=== PATIENT | female | born 1930 | race Caucasian/White ===

== ENCOUNTER 2016-09-30 08:14 | Inpatient (IN) | payer MEDICARE ==
[~2016-09-30] VITALS: Ht 167.6 cm; Wt 106.6 kg
--- NOTE | ~2016-09-30 | CST ---
Cardiac Perfusion Imaging Demographics Patient Name JOSE Fisher Gender Female Patient Number [id number] Race Visit Number [id number] Ethnicity Corporate ID Room Number 406 Accession Number [id number] Height 66 inches Date of 1930 Weight 229 pounds Age 86 year(s) BSA 2.12 m Referring Physician Prince Brown MD BMI 36.96 kg/m Interpreting Physician [facility] [place] Date of study 10/02/2016 Bubba Alvarado MD Supervising MD/MLP Bubba Alvarado MD NM Technologist [place] Ordering Physician Bubba Alvarado MD Stress pharmacy technician instructor Stress ECG Reading [facility] Nurse Chet Patel Physician Bubba Spencer The procedure was explained in detail to the patient. Risks, complications and alternative treatments were reviewed. Written consent was obtained. Medications Reviewed with Patient prior to Procedure. Procedure Procedure Type: Nuclear Stress Test:Pharmacological, Lexiscan Procedure Start time: 10/02/2016 07:30 Indications: Chest discomfort and Hypertension. Risk Factors The patient risk factors include:hypertension, renal failure and prior heart failure . Conclusions Summary Perfusion Images: The overall quality of the study is good. Left ventricular cavity is noted to be normal on the stress and rest studies. There is no evidence of abnormal lung activity. The right ventricle is not visualized and cannot be assessed. Stress SPECT images demonstrate homogenous tracer distribution throughout the myocardium. Rest SPECT images demonstrate homogenous tracer distribution throughout the myocardium. Gated SPECT imaging reveals normal myocardial thickening and wall motion. The left ventricular ejection fraction was calculated to be 77%. Impression ECG portion of stress test is clinically negative for ischemia by diagnostic criteria. Myocardial perfusion imaging is normal. Overall left ventricular systolic function was normal without regional wall motion abnormalities. Compared to the prior study from 2009, the current study reveals no change. Stress Protocols Resting ECG Normal sinus rhythm. Ventricular paced rhythm. Resting HR:71 bpm Resting BP:100/60 mmHg Stress Protocol:Pharmacologic Predicted HR: 134 bpm Test duration: 06:00 min Reason for termination:Infusion complete ECG Findings No ECG changes suggestive of ischemia. Arrhythmias No rhythm abnormality. Stress Interpretation Appropriate hemodynamic response to Lexiscan. No significant ST-T wave changes with Lexiscan. ECG portion is negative for ischemia by diagnostic criteria. Imaging Results Summed scores - Summed stress score: 5 - Summed rest score: 7 - Summed difference score: -2 Stress ejection Ejection fraction:77 % EDV :69 ml ESV :16 ml Stroke volume :53 ml LV mass :112 gr Imaging Protocols Rest Stress Isotope:Tc99m Myoview IV Isotope: Tc99m Myoview IV Isotope dose:10.9 mCi Isotope dose:31 mCi Date:10/02/2016 06:15 Date:10/02/2016 07:30 Technique: SPECT Technique: Gated Supine SPECT Supine IV remains in place after procedure. Scan Time:45-60 minutes post Scan Time:45-60 minutes post injection injection Procedure Medications - Regadenoson (Lexiscan) 0.4 mg IV over 10-15 sec. I.V. 0.4 mg. Medications administered per verbal order and read back to physician prior to administration. Medical History Admission Data Admission date: 09/30/2016 Admission Time: 10:00 Hospital Status: Inpatient. Signatures
--- NOTE | 2016-10-02 07:56 | HP ---
ADMIT: 09/30/2016 RM/LOC: 406 [facility] MR#: [id number] 2620 [facility] [address] [place], [place] [address] TRINA GARCIA [address] [address] History and Physical SEX: F AGE: 86 : 1930 DATE OF SERVICE: CHIEF COMPLAINT: Chest pressure, tightness, and shortness of breath. HISTORY OF PRESENT ILLNESS: An 86-year-old female with past medical history of chronic diastolic heart failure; atrial fibrillation/sick sinus syndrome, status post pacemaker; and chronic kidney disease, presents to [facility] Emergency Room today with complaints of chest pressure. Notes it started last night, was sitting watching TV and along with this, she felt kind of shortness of breath and felt like a pressure type of band around her chest almost like her brassiere was too tight. The patient denies any fevers. Does maybe notes no purulent sputum. Has really not had any sick contacts. No new edema has been noted. In the emergency room given her symptoms and her history, she was admitted for further evaluation. Right now, the patient still notes just a little bit of chest pressure. They did note it mostly went away in the emergency room with nitroglycerin, but still noting a little bit. She rates it about 4/10. Once again, just kind of this substernal chest type of pressured. Denies any nausea, vomiting, or abdominal pain. Denies any bowel or bladder complaints. Taking all medications as directed. PAST MEDICAL HISTORY: 1. Chronic atrial fibrillation/sick sinus syndrome, status post pacemaker. 2. Chronic diastolic heart failure. 3. Hypertension. 4. GERD. 5. History of peptic ulcer disease. 6. Sjogren's. 7. Osteoporosis. 8. Chronic depression. 9. Status post tonsillectomy. 10.Status post hernia repair. 11.Status post eye surgery. 12.Status post open reduction and internal fixation of her surgery. 13.Status post left total knee arthroplasty. ALLERGIES: INCLUDE CODEINE, DIPHENHYDRAMINE, AND SULFA. CURRENT HOME MEDICATIONS: Include: 1. PreserVision. 2. Aspirin. 3. Calcium. 4. Prolia. 5. Lasix. 6. Magnesium. 7. Zaroxolyn. 8. Metoprolol. 9. Multivitamin. 10.Omeprazole. 11.Pilocarpine. ADMIT: 09/30/2016 RM/LOC: 406 [facility] MR#: [id number] [address] [address] TRINA GARCIA [address] [place] [address] History and Physical SEX: F AGE: 86 : 1930 12.Potassium. FAMILY HISTORY: Father with heart disease. Mother had problem with intestinal obstruction. SOCIAL HISTORY: She is . Lives currently at [facility]. She is an occasional drinker. Nonsmoker. REVIEW OF SYSTEMS: Remaining review of systems reviewed and are negative. PHYSICAL EXAMINATION: VITAL SIGNS: 98.8, 71, 18, 105/61, and 100% on couple liters by nasal cannula. GENERAL: This is an obese, elderly female. She is in no apparent distress. She is awake. She is alert and oriented x3. Cooperative with the examiner. HEENT: Normocephalic and atraumatic. Mucous membranes are moist. NECK: Supple. LUNGS: She is diminished at the bases. I do not hear any obvious rales. HEART: Regular. I do not notice any murmurs. I do not notice her neck veins look okay to me. ABDOMEN: Soft, nontender, and nondistended. Positive bowel sounds. EXTREMITIES: She have 1 to 2+ foot, ankle, calf edema bilaterally. SKIN: Shows no obvious rashes. NEUROLOGIC: Cranial nerves are intact. No focal deficits are noted. LABORATORY AND DIAGNOSTIC STUDIES: D-dimer was elevated at 0.93. Her troponin has been less than 0.015 on two occasions. Her BNP was 2198. Her hemoglobin was 12.5, white count 10.9, and 184,000 platelets. Sodium 140, potassium 4.2, BUN is 39 with creatinine of 1.4. Chest x-ray shows some mild interstitial prominence. She has a pacemaker in place. Question small left pleural effusion, noted cardiomegaly. Her EKG really looks like fib, but then at other times, is V paced. No acute changes are noted. She did have V/Q scan done earlier today that was low probability for any PE. ASSESSMENT AND PLAN: 1. Chest pressure, dyspnea. 2. Atrial fibrillation, status post pacer. 3. Chronic diastolic heart failure. 4. Chronic kidney disease. 5. Obesity. 6. Sjogren's. ADMIT: 09/30/2016 RM/LOC: 406 [facility] MR#: [id number] [address] [address] TRINA GARCIA [address] [place] [address] History and Physical SEX: F AGE: 86 : 1930 At this time, the patient still having a little bit of pressure. Certainly, does not sound like reflux to me at this time. Certainly with her risk factors, we are going to continue rule out with serial cardiac enzymes. EKGs and V/Q scan was negative and of course, that was done secondary to elevated D- dimer and her overall sedentary lifestyle. Certainly has not had cardiac functional study done we will discuss some cardiac stress testing. We will follow up her with chest x-ray in the morning and lab work. Plan on incentive spirometry. Continue stressor of her home medications. Her volume status overall looks okay. Her kidney function is overall stable. Certainly, if this does not seem infectious to me with no significant cough, fevers, chills, or sputum production, but we will follow up her chest x-ray and follow her symptoms. Mychal Morrison MD/ aundrea JOB #: [id number] CC: Mychal Morrison, Attending Physician Mychal Morrison, Family Physician
--- NOTE | 2016-10-02 16:27 | ER ---
ADMIT: 09/30/2016 RM/LOC: 406 [facility] MR#: [id number] 2620 [facility] [address] [place], [place] [address] JOSE TRINA D [address] [address] Emergency Room Report SEX: F AGE: 86 : 1930 DATE: 09/30/2016 CHIEF COMPLAINT: Chest pain. HISTORY OF PRESENT ILLNESS: The patient is an 86-year-old female who presents to the ER complaining of chest pain that began last night around 7 p.m. It has been constant onset but is wax and wane in severity. She does not associate with any activity. She states it feels like pressure heaviness on her chest. She does have some associated shortness of breath with this, but no nausea, no vomiting, no diaphoresis. REVIEW OF SYSTEMS: Ten-point review of systems done otherwise negative except as in HPI. PAST MEDICAL HISTORY: Significant for coronary artery disease, diastolic failure, atrial fibrillation, and Sjogren's. PREVIOUS SURGERIES: Pacemaker, hernia repair, and D and C. MEDICATIONS: See nurse's note. She is not currently anticoagulated for atrial fibrillation, but does take a baby aspirin. ALLERGIES: CODEINE, SULFA, AND BENADRYL. SOCIAL HISTORY: Denies smoking or drug use. Does occasionally use alcohol. PHYSICAL EXAMINATION: See T-sheet. LABORATORY AND DIAGNOSTIC DATA: Chest x-ray shows what could be very small pleural effusion versus atelectasis at the left base. Otherwise, no acute findings. CBC is normal. Chemistries show CO2 of 34, BUN of 39, glucose 136, creatinine 1.4 and 1st set of cardiac enzymes were normal. Her BNP was 2198 and her D-dimer is slightly elevated at 0.9. EKG showed a paced rhythm with ADMIT: 09/30/2016 RM/LOC: 406 [facility] MR#: [id number] 2620 [facility] [address] [place], [place] [address] TRINA GARCIA [address] [address] Emergency Room Report SEX: F AGE: 86 : 1930 rate of 70. EMERGENCY DEPARTMENT COURSE: The patient had our cardiac routine performed, and she did get significant improvement in her chest pain. After that she was given nitroglycerin and had an inch of nitroglycerin paste placed. I discussed the case with Dr. Morrison, her primary care physician who will bring the patient in for further cardiac rule out. At this point, we will not be performing a CT angio of the chest and the patient for slightly elevated D- dimer as her oxygen saturations have been fine here, and I am concerned of worsening kidney insult if we were to do a CT contrast study at this time. I think it is low probability she has a PE. The patient is admitted in stable and improved condition with a diagnosis of chest pain. Darrick Tobar MD/ aundrea JOB #: [id number] CC: Mychal Morrison MD, Attending Physician Mychal Morrison MD, Family Physician
[2016-10-03] MEDS ORDERED: SALAGEN5 MG PO (11:24)
[2016-10-03] MEDS ORDERED: PRILOSEC DPS20 MG PO (11:24)
[2016-10-03] MEDS ORDERED: METOPROLOL TART25 MG PO (11:24)
[2016-10-03] MEDS ORDERED: LASIX DPS80 MG PO (11:24)
[2016-10-03] MEDS ORDERED: KLOR-CON M2020 ME1 PO (11:24)
[2016-10-03] MEDS ORDERED: TYLENOL EXTRA500 M1 PO (11:25)
[2016-10-03] MEDS ORDERED: ZAROXOLYN5 MG PO (11:25)
[2016-10-03] MEDS ORDERED: ICAPS AREDS SO1 EACH PO (11:26)
[2016-10-03] MEDS ORDERED: THERA1 EACH PO (11:26)
[2016-10-03] MEDS ORDERED: CALTRATE-600 D600 MG PO (11:26)
[2016-10-03] MEDS ORDERED: ASPIRIN EC81 MG PO (11:27)
[2016-10-03] MEDS ORDERED: PROLIA60 MG/ML PO (11:28)
[2016-10-03] MEDS ORDERED: MAGNESIUM250 M1 PO (11:28)
--- NOTE | 2016-10-11 21:18 | DS ---
ADMIT: 09/30/2016 RM/LOC: 406 [facility] MR#: [id number] 2620 [facility] [address] [place], [place] [address] TRINA GARCIA [address] [address] Discharge Summary SEX: F AGE: 86 : 1930 ADMISSION DATE: 09/30/2016 DISCHARGE DATE: 10/02/2016 DISCHARGE DIAGNOSES: 1. Chest pressure, resolved. 2. Chronic diastolic heart failure. 3. Chronic kidney disease. 4. Atrial fibrillation/sick sinus syndrome, status post pacemaker. 5. Obesity. 6. GERD (gastroesophageal reflux disease). 7. Sjogren's. PROCEDURES: Included a V/Q scan and Lexiscan Cardiolite nuclear stress testing. CONSULTATIONS: None. REASON FOR ADMISSION: A very pleasant, 86-year-old female with past medical history of atrial fibrillation, sick sinus syndrome, chronic diastolic heart failure, chronic kidney disease presents to [facility] emergency room on the day of admission with complaints of chest pressure, discomfort. She was admitted for further evaluation and treatment. For complete details, please see H and P dictated on the day of admission. HOSPITAL COURSE: At the time of admission, the patient was placed in a monitored bed. She underwent monitoring with serial cardiac enzymes and EKGs. She was monitored on telemetry as well. Her D-dimer was elevated at the start of her admission. With her chronic kidney disease, she could not undergo a CT angio of the chest, so she underwent a V/Q scan that was low probability for any pulmonary embolus. Her cardiac enzymes all ruled out, and she was set up for a Lexiscan and Cardiolite nuclear stress testing, which was negative for any inducible ischemia. Her chest x-ray showed some mild interstitial prominence, and she was given doses of IV diuretics. Her creatinine was stable, her chest pressure completely resolved. There was question whether this was gastroesophageal reflux, although as things did improve with some Maalox but overall patient stated it was much different than any heartburn symptoms she had ever had. Her pain had resolved. She was seen by PT and OT. ADMIT: 09/30/2016 RM/LOC: 406 [facility] MR#: [id number] 2620 [facility] [address] [place], [place] [address] TRINA GARCIA [address] [place] [address] Discharge Summary SEX: F AGE: 86 : 1930 She ambulated and ate and did very well and was thought to be ready for discharge on 10/02. DISCHARGE DIET: A 2 g sodium cardiac diet with a 2 L fluid restriction. DISCHARGE MEDICATIONS: Are found on her discharge medication list. She will continue with diuretics as current. DISCHARGE ACTIVITY: As tolerated. Will once again plan on daily weights and watch her edema closely. We will try to use her Edema Wear on a regular basis, keep her feet up and watch her sodium. We will have followup with her at [facility] in the next week or so. She will call with other questions. Mychal Morrison MD/ monalisa JOB #: [id number] CC: Mychal Morrison MD, Attending Physician Mychal Morrison MD, Family Physician
== END 2016-10-02 14:50 | disposition home or self-care (01) | DRG 313 ==
LOC: ER 08:14 → 4PCU 10:00
PROVIDERS: ADMIT Internal Medicine
DX: R07.9 Chest pain, unspecified (principal); I25.10 Atherosclerotic heart disease of native coronary artery without angina pectoris; R06.00 Dyspnea, unspecified; I48.91 Unspecified atrial fibrillation; I50.32 Chronic diastolic (congestive) heart failure; I13.0 Hypertensive heart and chronic kidney disease with heart failure and stage 1 through stage 4 chronic kidney disease, or unspecified chronic kidney disease; N18.3 Chronic kidney disease, stage 3 (moderate); M35.00 Sjogren syndrome, unspecified; E66.9 Obesity, unspecified; M81.0 Age-related osteoporosis without current pathological fracture; F32.9 Major depressive disorder, single episode, unspecified; Z95.0 Presence of cardiac pacemaker; Z87.11 Personal history of peptic ulcer disease; Z79.82 Long term (current) use of aspirin; Z96.652 Presence of left artificial knee joint; Z68.36 Body mass index [BMI] 36.0-36.9, adult